=== PATIENT | female | born 1975 | race African-American/Black ===

== ENCOUNTER 2017-06-15 10:07 | Emergency (ER) | payer BC, SELFPAY ==
[2017-06-15] MEDS ORDERED: Metoprolol Tartrate 5 MG/5 ML VIAL ONE ×2 (10:33→10:56)
[2017-06-15 10:41] LABS: PTT 27.5 SEC (22.9-36.1); Prothrombin Time 13.2 SEC (12.0-14.7)
[2017-06-15 10:42] LABS: #Basophils 0.1 thou/uL (0.0-0.2); #Eosinphils 0.1 thou/uL (0.0-0.7); #Lymphocytes 1.3 thou/uL (1.20-3.40); #Monocytes 0.3 thou/uL (0.11-0.59); %Basophils 2.2 % (0.0-1.0); %Eosinophils 2.3 % (0.0-10.0); %Lymphocytes 33.7 % (21.0-51.0); %Monocytes 8.3 % (0.0-10.0); %Neutrophils 53.6 % (42.0-75.0); Anisocytosis SLIGHT = 6-15 cells (100X) (0-5/hpf); Elliptocytes SLIGHT = 2-5 cells (100X) (0-1/hpf); Hypochromia SLIGHT = 6-15 cells (100X) (0-5/hpf); MDiff Complete? YES; Mean Corpuscular HGB CONC 33.6 g/dL (32.0-36.0); Mean Corpuscular Volume 74.4 fl (81.0-99.0); Mean Platelet Volume 7.5 fL (7.4-10.4); Microcytosis SLIGHT = 6-15 cells (100X) (0-5/hpf); Platelet Count 273 thou/uL (130-400); Poikilocytosis SLIGHT = 6-15 cells (100X) (0-5/hpf); RBC Distribution Width 13.7 % (11.5-14.5); White Blood Cell (WBC) Count 3.8 thou/uL (4.8-10.8)
[2017-06-15 10:53] LABS: ALT (SGPT) 13 U/L (8-55); AST (SGOT) 11 U/L (5-34); Alkaline Phosphatase 98 U/L (40-150); Anion Gap 13 mmol/L (10-20); BUN (Urea Nitrogen) 6 mg/dL (7.0-18.7); Bilirubin, Total 0.8 mg/dL (0.2-1.2); Calc. Creatinine Clearance 0 mL/min (70-130); Calcium 9.2 mg/dL (7.8-10.44); Carbon Dioxide 25 mmol/L (22-29); Chloride 104 mmol/L (98-107); Estimated GFR-MDRD Greater than 90; Globulin 3.8 g/dL (2.4-3.5); Glucose 155 mg/dL (70-105); Potassium 3.8 mmol/L (3.5-5.1); Protein, Total 7.8 g/dL (6.0-8.3); Sodium 138 mmol/L (136-145)
[2017-06-15 10:54] LABS: CKMB 0.7 ng/mL (0-6.6); Troponin I Less than 0.010 ng/mL (< 0.028)
[2017-06-15 11:01] LABS: Lipase Less than 4 U/L (8-78)
[2017-06-15] MEDS ORDERED: diphenhydrAMINE 50 MG/ML VIAL ONE (11:09)
--- NOTE | 2017-06-15 21:10 | RAD ---
PORTABLE CHEST: Date: 06-15-17 An AP portable from at 1026 is compared with an 11-26-12 study. FINDINGS: The heart is mildly enlarged. There is no vascular congestion, edema, or pleural effusion. The lungs are clear. The trachea is midline. IMPRESSION: No acute thoracic findings. Cardiomegaly, stable. POS: HOME
== END 2017-06-15 11:42 | disposition short-term general hospital (02) ==
LOC: BURERS 10:07
DX: R07.2 Precordial pain (principal); J06.9 Acute upper respiratory infection, unspecified; F32.9 Major depressive disorder, single episode, unspecified; E11.9 Type 2 diabetes mellitus without complications; I10 Essential (primary) hypertension; E78.5 Hyperlipidemia, unspecified; Z79.84 Long term (current) use of oral hypoglycemic drugs; Z79.899 Other long term (current) drug therapy; Z79.82 Long term (current) use of aspirin
CPT/HCPCS: 36416; 71045; 80053; 82553; 83690; 83880; 84484; 85025; 85610; 85730; 93005; 94760; 96374; 96375; J1200; J2270

== ENCOUNTER 2017-12-14 11:46 | Emergency (ER) | payer BC | END 2017-12-14 12:03 | disposition home or self-care (01) | LOC: BURERS 11:46 | DX: M62.830 Muscle spasm of back (principal); E11.9 Type 2 diabetes mellitus without complications; E78.5 Hyperlipidemia, unspecified; Z79.899 Other long term (current) drug therapy; Z79.82 Long term (current) use of aspirin; Z79.84 Long term (current) use of oral hypoglycemic drugs | CPT/HCPCS: 99283 ==

== ENCOUNTER 2018-03-13 22:47 | Emergency (ER) | payer BC ==
[2018-03-13] MEDS ORDERED: Ibuprofen 800 MG TAB ONE (23:06)
--- NOTE | 2018-03-14 08:29 | RAD ---
LEFT ANKLE 3 VIEWS: DATE: 03/13/2018. FINDINGS: While there is no major fracture, there is an equivocal line through the tip of the lateral malleolus . This ankle appears to have had old trauma here in the past. I cannot tell if this vague line is n ew or old. There is soft tissue swelling around the ankle and more laterally than medially. The rem ainder of the joint appears normal. A small calcaneal spur was noted. IMPRESSION: Soft tissue swelling. Equivocal line in the tip of the lateral malleolus. Thought to be more likely old than new, but a followup series in 7-10 days might be helpful if needed. CODE T POS: HOME
== END 2018-03-13 23:50 | disposition home or self-care (01) ==
LOC: BURERS 22:47
DX: S93.402A Sprain of unspecified ligament of left ankle, initial encounter (principal); E11.9 Type 2 diabetes mellitus without complications; E78.5 Hyperlipidemia, unspecified; I10 Essential (primary) hypertension; Z79.82 Long term (current) use of aspirin; Z79.899 Other long term (current) drug therapy; Z79.84 Long term (current) use of oral hypoglycemic drugs; X50.1XXA Overexertion from prolonged static or awkward postures, initial encounter

== ENCOUNTER 2018-08-07 10:43 | Emergency (ER) | payer BC ==
[2018-08-07] MEDS ORDERED: Ketorolac Tromethamine 30 MG/ML VIAL ONE (11:13)
[2018-08-07] MEDS ORDERED: Cyclobenzaprine 10 MG TAB ONE (11:13)
[2018-08-07 11:19] LABS: Clarity Clear (Clear); Leukocyte Negative (Negative); Nitrite Negative (Negative); Protein, Urine (Dipstick) Negative (Neg-Trace); Specific Gravity, Urine 1.015 (1.005-1.030)
[2018-08-07 11:20] LABS: Bilirubin Negative (Negative); Blood, Urine Negative (Negative); Glucose, Urine (Dipstick) 250 mg/dL (Negative); Urobilinogen 0.2 mg/dL (0.2-1.0)
[2018-08-07 11:21] LABS: Pregnancy Test - Urine (BHCG) Negative (Negative); Pregu Control Background? CLEAR/WHITE (CLR/WHITE); Pregu Control Bar Appear? YES (CONTROL BAR); Specific Gravity 1.015 (1.002-1.036)
== END 2018-08-07 11:36 | disposition home or self-care (01) ==
LOC: BURERS 10:43
DX: S39.012A Strain of muscle, fascia and tendon of lower back, initial encounter (principal); I10 Essential (primary) hypertension; E11.9 Type 2 diabetes mellitus without complications; Z79.84 Long term (current) use of oral hypoglycemic drugs; X58.XXXA Exposure to other specified factors, initial encounter
CPT/HCPCS: 81003; 81025; 96372; J1885

== ENCOUNTER 2018-10-01 15:45 | Emergency (ER) | payer BC ==
[2018-10-01] MEDS ORDERED: HYDROcodone/Acetaminophen 10/325 mg Tablet ONE (16:01)
[2018-10-01] MEDS ORDERED: Ibuprofen 800 MG TAB ONE (16:02)
--- NOTE | 2018-10-01 17:08 | CT ---
CT OF THE CERVICAL SPINE 10/01/18 Axial slices were acquired followed by multiple reconstructions in various planes. There is reversal of the normal cervical lordosis which may be due to muscle spasm. No fracture, disl ocation, or bony anomaly of concern was found. The C1 to dens distance is normal and the soft tissue s are normal in thickness. There was no evidence of central canal or foraminal stenosis. While MRI wo uld be more sensitive to subtle disc protrusions, no large ones were visualized on this scan. Very mi nor degenerative changes are present consisting of some anterior osteophytes. IMPRESSION: Other than reversal of lordosis, no significant bony finding. POS: HOME
== END 2018-10-01 16:40 | disposition home or self-care (01) ==
LOC: BURERS 15:45
DX: E04.1 Nontoxic single thyroid nodule (principal); E11.9 Type 2 diabetes mellitus without complications
CPT/HCPCS: 72125

== ENCOUNTER 2019-01-29 11:45 | Emergency (ER) | payer BC | END 2019-01-29 12:32 | disposition home or self-care (01) | LOC: BURERS 11:45 | DX: S16.1XXA Strain of muscle, fascia and tendon at neck level, initial encounter (principal); S39.012A Strain of muscle, fascia and tendon of lower back, initial encounter; I10 Essential (primary) hypertension; Z79.899 Other long term (current) drug therapy; Z79.84 Long term (current) use of oral hypoglycemic drugs; V89.2XXA Person injured in unspecified motor-vehicle accident, traffic, initial encounter | CPT/HCPCS: 99283 ==

== ENCOUNTER 2019-04-05 09:23 | Emergency (ER) | payer BC ==
[2019-04-05] MEDS ORDERED: Ondansetron ODT 4 MG TAB ONE (09:41)
[2019-04-05] MEDS ORDERED: Benzonatate 100 MG CAP ONE (09:42)
== END 2019-04-05 09:56 | disposition home or self-care (01) ==
LOC: BURERS 09:23
DX: J11.1 Influenza due to unidentified influenza virus with other respiratory manifestations (principal); E11.9 Type 2 diabetes mellitus without complications; I10 Essential (primary) hypertension; Z79.84 Long term (current) use of oral hypoglycemic drugs; Z79.899 Other long term (current) drug therapy
CPT/HCPCS: 99283; Q0162

== ENCOUNTER 2019-05-04 23:08 | Emergency (ER) | payer BC ==
[2019-05-04] MEDS ORDERED: Ondansetron PF 4 MG/2 ML Vial ONE (23:36)
[2019-05-04 23:51] LABS: Hemoglobin 7.3 g/dL (12.0-16.0); Mean Corpuscular HGB CONC 29.1 g/dL (32.0-36.0); Mean Corpuscular Hemoglobin 17.6 pg (27.0-31.0); Mean Corpuscular Volume 60.4 fL (78.0-98.0); Mean Platelet Volume 7.7 fL (7.4-10.4); Platelet Count 276 thou/uL (130-400); RBC Distribution Width 15.2 % (11.5-14.5); Red Blood Cell (RBC) Count 4.15 mill/uL (4.20-5.40); White Blood Cell (WBC) Count 3.3 thou/uL (4.8-10.8)
[2019-05-04 23:59] LABS: BHCG - Serum Negative (NEGATIVE); Pregs Control Bar Appear? YES (CONTROL BAR)
[2019-05-05] LABS: ALT (SGPT) 17 U/L (8-55); AST (SGOT) 21 U/L (5-34); Alkaline Phosphatase 103 U/L (40-110); Anion Gap 15 mmol/L (10-20); BUN (Urea Nitrogen) 7 mg/dL (7.0-18.7); Bilirubin, Total 0.5 mg/dL (0.2-1.2); Calc. Creatinine Clearance 0 mL/min (70-130); Calcium 8.5 mg/dL (7.8-10.44); Carbon Dioxide 21 mmol/L (22-29); Chloride 106 mmol/L (98-107); Estimated GFR-MDRD Greater than 90; Globulin 3.6 g/dL (2.4-3.5); Glucose 196 mg/dL (70-105); Potassium 3.7 mmol/L (3.5-5.1); Protein, Total 7.6 g/dL (6.0-8.3); Sodium 138 mmol/L (136-145)
[2019-05-05] LABS: Pregs Control Background? CLEAR/WHITE (CLR/WHITE)
[2019-05-05 00:07] LABS: #Basophils 0.1 thou/uL (0.0-0.2); #Eosinphils 0.1 thou/uL (0.0-0.7); #Lymphocytes 0.8 thou/uL (1.20-3.40); #Monocytes 0.4 thou/uL (0.11-0.59); #Neutrophils 1.9 thou/uL (1.40-6.50); %Basophils 2.8 % (0.0-1.0); %Lymphocytes 26.3 % (21.0-51.0); %Monocytes 10.9 % (0.0-10.0); Anisocytosis SLIGHT = 6-15 cells (100X) (0-5/hpf); Hypochromia MODERATE=16-30 cells (100X) (0-5/hpf); MDiff Complete? YES; Microcytosis MODERATE=15-30 cells (100X) (0-5/hpf); Platelet Morphology Comment Appears Adequate; Spherocytes SLIGHT = 1-5 cells (100X) (None Seen); Stomatocytes SLIGHT = 2-5 cells (100X) (0-1/hpf)
[2019-05-05 00:13] LABS: Lipase Less than 4 U/L (8-78)
== END 2019-05-05 01:32 | disposition home or self-care (01) ==
LOC: BURERS 23:08
DX: D50.9 Iron deficiency anemia, unspecified (principal); R19.7 Diarrhea, unspecified; R11.2 Nausea with vomiting, unspecified; I10 Essential (primary) hypertension; E11.9 Type 2 diabetes mellitus without complications; Z79.899 Other long term (current) drug therapy; Z79.84 Long term (current) use of oral hypoglycemic drugs
CPT/HCPCS: 80053; 82274; 83690; 84703; 85025; 96361; 96374; J2405

== ENCOUNTER 2019-05-31 00:18 | Emergency (ER) | payer BC ==
[2019-05-31] MEDS ORDERED: Ketorolac Tromethamine 60 MG/2 ML VIAL ONE (00:41)
== END 2019-05-31 00:40 | disposition home or self-care (01) ==
LOC: BURERS 00:18
DX: S43.401A Unspecified sprain of right shoulder joint, initial encounter (principal); E11.9 Type 2 diabetes mellitus without complications; I10 Essential (primary) hypertension; D50.0 Iron deficiency anemia secondary to blood loss (chronic); Z79.82 Long term (current) use of aspirin; Z79.899 Other long term (current) drug therapy; Z79.84 Long term (current) use of oral hypoglycemic drugs; X58.XXXA Exposure to other specified factors, initial encounter
CPT/HCPCS: 96372; 99283; J1885

== ENCOUNTER 2019-09-23 16:38 | Emergency (ER) | payer BC | END 2019-09-23 17:11 | disposition home or self-care (01) | LOC: BURERS 16:38 | DX: M43.6 Torticollis (principal); E11.9 Type 2 diabetes mellitus without complications; I10 Essential (primary) hypertension; D50.9 Iron deficiency anemia, unspecified; Z79.899 Other long term (current) drug therapy; Z79.82 Long term (current) use of aspirin | CPT/HCPCS: 99283 ==

== ENCOUNTER 2019-10-23 11:05 | Emergency (ER) | payer BC | END 2019-10-23 11:25 | disposition home or self-care (01) | LOC: BURERS 11:05 | DX: K52.9 Noninfective gastroenteritis and colitis, unspecified (principal); E11.9 Type 2 diabetes mellitus without complications; I10 Essential (primary) hypertension; D64.9 Anemia, unspecified; Z79.84 Long term (current) use of oral hypoglycemic drugs; Z79.899 Other long term (current) drug therapy | CPT/HCPCS: 99283 ==

== ENCOUNTER 2020-03-31 20:47 | Emergency (ER) | payer BC ==
[2020-04-01 17:42] LABS: SARS-CoV-2 MS2 Positive; SARS-CoV-2 N Gene Negative; SARS-CoV-2 S Gene Negative; SARS-CoV-2 by NAA Not Detected (NotDetected); SARS-CoV-2 orf1ab Negative
== END 2020-03-31 22:15 | disposition home or self-care (01) ==
LOC: BURERS 20:47
DX: R11.2 Nausea with vomiting, unspecified (principal); R19.7 Diarrhea, unspecified; Z20.822 Contact with and (suspected) exposure to COVID-19; Z79.84 Long term (current) use of oral hypoglycemic drugs; Z79.899 Other long term (current) drug therapy; Z79.82 Long term (current) use of aspirin; E11.9 Type 2 diabetes mellitus without complications; I10 Essential (primary) hypertension; D50.9 Iron deficiency anemia, unspecified
CPT/HCPCS: 87635; 99284; U0003

== ENCOUNTER 2021-07-26 19:20 | Emergency (ER) | payer BC | END 2021-07-26 21:20 | disposition home or self-care (01) | LOC: BURERS 19:20 | DX: S76.111A Strain of right quadriceps muscle, fascia and tendon, initial encounter (principal); I10 Essential (primary) hypertension; E11.9 Type 2 diabetes mellitus without complications; D50.9 Iron deficiency anemia, unspecified; X58.XXXA Exposure to other specified factors, initial encounter ==

== ENCOUNTER 2021-10-20 18:27 | Emergency (ER) | payer BC ==
[2021-10-20] MEDS ORDERED: HYDROcodone/Acetaminophen 5/325 mg Tablet ONE (18:52)
[2021-10-20] MEDS ORDERED: Ibuprofen 800 MG TAB ONE (18:52)
== END 2021-10-20 18:56 | disposition home or self-care (01) ==
LOC: BURERS 18:27
DX: M62.838 Other muscle spasm (principal); E11.9 Type 2 diabetes mellitus without complications; I10 Essential (primary) hypertension; D50.9 Iron deficiency anemia, unspecified
CPT/HCPCS: 99283